=== PATIENT | female | born 1990 | race Caucasian/White ===

== ENCOUNTER 2020-10-31 23:35 | Emergency (ER) | payer MEDICARE ==
[2020-11-01] MEDS ORDERED: Sodium Chloride 0.9% 1000 ML 1,000 ML ONE (01:59)
[2020-11-01] MEDS ORDERED: TORAdol 30 mg Injection ONE (01:59)
[2020-11-01 03:07] LABS: Hematocrit 39.2 % (35-47); Hemoglobin 13.5 gm/dl (12.0-16.0); White Blood Count 7.3 K/mm3 (4.0-10.5)
[2020-11-01 03:08] LABS: ALBUMIN 4.5 g/dL (3.5-5.0); BLOOD UREA NITROGEN 16 mg/dL (7-17); CHLORIDE 104 mmol/L (98-107); Calcium 9.3 mg/dL (8.4-10.2); Carbon Dioxide 24 mmol/L (22-30); Creatinine 1 0.69 mg/dL (0.52-1.04); EST GLOMERULAR FILTRATION RATE > 60.0 ML/MIN; Glucose 100 mg/dL (74-106); Mean Cell Volume 87.1 fl (78-100); Mean Corpuscular Hgb Concent. 34.4 g/dl (32-36); Mean Platelet Volume 10.9 fl (7.5-11.0); Platelet Count 257 K/mm3 (150-450); Potassium 3.1 mmol/L (3.5-5.1); Red Cell Distribution Width 13.1 % (11.5-14.0); SODIUM 139 mmol/L (137-145); Total Protein 7.3 g/dL (6.3-8.2)
[2020-11-01 03:09] LABS: ALKALINE PHOSPHATASE 63 U/L (38-126); SGOT/AST 26 U/L (14-36); SGPT/ALT 22 U/L (0-35)
[2020-11-01] MEDS ORDERED: Klor Con 10 MEQ PO ONE ×2 (05:35→05:39)
[2020-11-01] MEDS ORDERED: MORPHINE SULFATE 2 MG INJ ONE (05:37)
[2020-11-01 06:07] LABS: Appearance TURBID (CLEAR); Glucose NEGATIVE (NEGATIVE); Leukocyte Esterase NEGATIVE (NEGATIVE); Nitrite NEGATIVE (NEGATIVE); Protein,Urine Dip NEGATIVE (Negative); Specific Gravity 1.027 (1.005-1.025)
[2020-11-01 06:08] LABS: Bilirubin NEGATIVE (NEGATIVE); Blood MODERATE Ery/ul (0-5); Ketones TRACE (NEGATIVE); Mucus MODERATE /HPF (NEGATIVE); RBC 0-2 /HPF (0-2); Urobilinogen NORMAL mg/dL (0-1)
[2020-11-01 06:09] LABS: Bacteria MODERATE /HPF (NEGATIVE); Epithelial Cells RARE /HPF (FEW)
--- NOTE | 2020-11-01 22:58 | XRAY ---
Exam: CT of the abdomen and pelvis without IV contrast from 2:35 AM on 11/01/2020. CTDI: 7.27 mGy Comparison: None. Indication: 30-year-old female with abdominal pain; history of prior cholecystectomy and gastric sleeve surgery for weight loss; the patient has a past history of a right-sided kidney stone that was removed about 2 years ago; she now has right flank pain and hematuria. Technique: Non-IV contrast axial images were obtained through the abdomen and pelvis. Reconstructed coronal and sagittal images were created and reviewed. Findings: The lung bases appear essentially clear. There is an ornamental left nipple ring seen. The heart size is normal without pericardial effusion. The liver and spleen appear unremarkable without mass. Surgical clips consistent with prior cholecystectomy are seen within the right upper quadrant. No biliary duct distention is seen. Surgical suture material or clips are seen within the medial aspect of the left upper quadrant consistent with the patient's history of prior gastric sleeve surgery. The pancreas appears unremarkable. The adrenal glands are normal. Both kidneys are of normal size and shape. No renal calculi or hydronephrosis is seen. There is a small extrarenal pelvis on the right. It is difficult to follow the right ureter completely into the lower right hemipelvis. I note a 4 mm calcification within the lower right hemipelvis on axial images #102 and #103 which could possibly represent a distal right ureteral stone not causing significant obstruction at this time. Correlate clinically. The left ureter appears unremarkable. The abdominal aorta appears of normal diameter. No abnormal retroperitoneal lymphadenopathy is seen. I see no free intraperitoneal air. There is minimal protrusion of intra-abdominal fat into the subcutaneous fat at the level of the umbilicus on midline sagittal image #102. No bowel containing ventral hernia is seen. The bowel is nonobstructed. Some scattered colonic stool is seen. The appendix is noted within the right lower quadrant and appears unremarkable. The uterus is anteflexed and tilted to the left of midline. Both ovaries appear grossly unremarkable. Moderate stool is seen within the distal rectosigmoid colon. No enlarged pelvic lymph nodes or free intraperitoneal fluid is seen. The skeleton reveals no acute fracture or aggressive bone lesion. I believe there is some mild diffuse bulging of the L5-S1 disc. Impression: 1. On axial images #102 and #103, there is a 4 mm calcification within the inferior right hemipelvis which could possibly lie within the distal right ureter. It is difficult to follow the right ureter all the way down the right hemipelvis due to adjacent soft tissue structures. Correlate clinically. 2. A moderate amount of colonic fecal residue is seen. There is no evidence of bowel obstruction. 3. The appendix is normal. 4. No other acute intra-abdominal or pelvic process is seen.
== END 2020-11-01 05:50 | disposition home or self-care (01) ==
LOC: ED 23:35
DX: R10.9 Unspecified abdominal pain (principal); Z87.442 Personal history of urinary calculi; M54.5 Low back pain
CPT/HCPCS: 36415; 74176; 80053; 81001; 84703; 85027; 87086; 96360; 96372; 96374; 99283; J1885; J2270; A9270-GY

== ENCOUNTER 2020-11-01 20:16 | Emergency (ER) | payer MEDICARE ==
[2020-11-01] MEDS ORDERED: TORAdol 30 mg Injection IM ONE (20:41)
[2020-11-01] MEDS ORDERED: TORAdol 30 mg Injection ONE (20:48)
[2020-11-01] MEDS ORDERED: ZOFRAN ODT 4 MG PO ONE (20:56)
[2020-11-01] MEDS ORDERED: ZOFRAN ODT 4 MG ONE (20:57)
[2020-11-01 21:12] LABS: Amphetamine,Urine NEGATIVE (NEGATIVE); Barbiturate,Urine NEGATIVE (NEGATIVE); Benzodiazepine,Urine NEGATIVE (NEGATIVE); Cocaine,Urine NEGATIVE (NEGATIVE); Methadone,Urine NEGATIVE (NEGATIVE); Opiate,Urine POSITIVE (NEGATIVE); PCP,Urine NEGATIVE (NEGATIVE); THC,Urine NEGATIVE (NEGATIVE)
--- NOTE | 2020-11-01 21:14 | ERPHSYRPT ---
- History of Present Illness Historian: patient Exam Limitations: no limitations Patient Subjective Stated Complaint: pt states she was diagnosed with a kidney stone 1.5 weeks ago and has cont to have pain in her rt back and rt lower abd Triage Nursing Assessment: pt alert and oriented, answers questions approp. pt ambulatory with steady gait noted. respirations nonlabored. skin warm and dry. abd soft and nontender. pt states she has been having urine frequency and voi ding small amounts. reporst pain with urination. Physician History: 30 yo wf w 10 day h/o R flank pain/supra-pubic pain/hematuria/dysuria. Pt states that she was diagnosed w a R kidney stone at [place] in [facility] 10 days ago. She was seen here last night w Ct demonstrating constipation. She has had N/V and rates pain 11/25. Timing/Duration: other (10 days) Activities at Onset: rest Quality: burning Abdominal Pain Onset Location: suprapubic, flank Pain Radiation: no radiation Severity of Pain-Max: severe Severity of Pain-Current: severe Modifying Factors: Improves With: nothing Associated Symptoms: denies symptoms, back, nausea, vomiting Previous symptoms: same symptoms as today (w kidney stones) Allergies/Adverse Reactions: Sulfa (Sulfonamide Antibiotics) Allergy (Intermediate, Verified 11/01/20 20:40) Swelling of Tongue and Lips Hx Tetanus, Diphtheria Vaccination/Date Given: Yes Hx Influenza Vaccination/Date Given: Yes Hx Pneumococcal Vaccination/Date Given: No Immunizations Up to Date: Yes Travel Risk - International Travel Have you traveled outside of the country in past 3 weeks: No - Coronavirus Screening Are you exhibiting any of the following symptoms?: No Close contact with a COVID-19 positive Pt in past 14-21 Days: No - Vaccine Status Have you recieved a Covid-19 vaccination: Yes 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 - Vaccination Dates Date of 2cond Vaccination (if applicable): apr 2020 - Review of Systems Constitutional: No Symptoms Eyes: No Symptoms Ears, Nose, & Throat: No Symptoms Respiratory: No Symptoms Cardiac: No Symptoms Abdominal/Gastrointestinal: No Symptoms, Nausea, Vomiting Genitourinary Symptoms: No Symptoms, Dysuria, Frequency, Hematuria Musculoskeletal: No Symptoms Skin: No Symptoms Neurological: No Symptoms Psychological: No Symptoms Endocrine: No Symptoms Hematologic/Lymphatic: No Symptoms Immunological/Allergic: No Symptoms - Past Medical History Pertinent Past Medical History: Yes Other Medical History: pcos - Past Surgical History Past Surgical History: Yes Gastrointestinal: Cholecystectomy Other Surgical History: gastric sleeve - Social History Smoking Status: Never smoker Exposure to second hand smoke: No Drug Use: none Patient Lives Alone: No Significant Family History: no pertinent family hx - Female History Hx Last Menstrual Period: 10/22/20 end Hx Now: No - Nursing Vital Signs Nursing Vital Signs: Initial Vital Signs Temperature 98.2 F 11/01/20 20:23 Pulse Rate 91 H 11/01/20 20:23 Respiratory Rate 16 11/01/20 20:23 Blood Pressure 141/98 11/01/20 20:23 O2 Sat by Pulse Oximetry 100 11/01/20 20:23 Pain Scale Pain Intensity 4 Hypertensive - Physical Exam General Appearance: no apparent distress Eye Exam: PERRL/EOMI, eyes nml inspection Ears, Nose, Throat Exam: normal ENT inspection, TMs normal, pharynx normal Neck Exam: normal inspection, non-tender, supple, full range of motion, No meningismus, No mass, No Brudzinski, No Kernig's Respiratory Exam: normal breath sounds, lungs clear, airway intact, No respiratory distress Cardiovascular Exam: regular rate/rhythm, normal heart sounds, normal peripheral pulses, No murmur Gastrointestinal/Abdomen Exam: soft, tenderness (Mild supra-pubic ttp) Back Exam: normal inspection, normal range of motion, No CVA tenderness Extremity Exam: normal inspection, normal range of motion Neurologic Exam: alert, oriented x 3, cooperative, silk trimmer II-XII nml as tested, normal mood/affect, nml cerebellar function, nml station & gait, sensation nml Skin Exam: normal color, warm, dry Lymphatic Exam: No adenopathy SpO2 Interpretation: normal SpO2: 100 O2 Delivery: Room Air - Course Nursing assessment & vital signs reviewed: Yes - CT Exams Abdomen/Pelvis CT Interpretation: Discussed w/radiologist (4mm distal R ureteral stone which has moved to the UVJ when Dr. Beyer compared to earlier CT) Ordered Tests: Active Orders 24 hr Category Date Time Status ABDOMEN AND PELVIS W/0 CONTRAS [CT] Stat Exams 11/01/20 21:37 Taken CULTURE,URINE Stat Lab 11/01/20 21:07 Received HCG,QUALITATIVE URINE Stat Lab 11/01/20 20:40 Completed UA W/RFX UR CULTURE Stat Lab 11/01/20 21:07 Completed Urine Triage Profile Stat Lab 11/01/20 21:07 Completed Medication Summary Discontinued Medications Generic Name Dose Route Start Last Admin Trade Name Renee PRN Reason Stop Dose Admin Hydrocodone Bitart/Acetaminophen 2 tab 11/01/20 22:16 11/01/20 22:21 [place] 5/325 Mg PO 11/01/20 22:17 2 tab SENT HOME W/ PATIENT ONE Administration Hydrocodone Bitart/Acetaminophen Confirm 11/01/20 22:17 [place] 5/325 Mg Administered 11/01/20 22:18 Dose 2 tab .ROUTE .STK-MED ONE Ciprofloxacin 500 mg 11/02/20 22:17 11/01/20 22:20 Cipro 500 Mg PO 11/02/20 22:18 500 mg STAT ONE Administration Ciprofloxacin Confirm 11/01/20 22:17 Cipro 500 Mg Administered 11/01/20 22:18 Dose 500 mg .ROUTE .STK-MED ONE Hydromorphone HCl 1 mg 11/01/20 21:42 11/01/20 21:50 Hydromorphone 1 Mg/Ml Injection IM 11/01/20 21:43 1 mg STAT ONE Administration Hydromorphone HCl Confirm 11/01/20 21:48 Hydromorphone 1 Mg/Ml Injection Administered 11/01/20 21:49 Dose 1 mg .ROUTE .STK-MED ONE Ketorolac Tromethamine 60 mg 11/01/20 20:41 11/01/20 20:51 Toradol 30 Mg Injection IM 11/01/20 20:42 60 mg STAT ONE Administration Ketorolac Tromethamine Confirm 11/01/20 20:48 Toradol 30 Mg Injection Administered 11/01/20 20:49 Dose 60 mg .ROUTE .STK-MED ONE Ondansetron HCl 4 mg 11/01/20 20:56 11/01/20 20:58 Zofran Odt 4 Mg PO 11/01/20 20:57 4 mg STAT ONE Administration Ondansetron HCl Confirm 11/01/20 20:57 Zofran Odt 4 Mg Administered 11/01/20 20:58 Dose 4 mg .ROUTE .STK-MED ONE Lab/Rad Data: Laboratory Results 11/01/20 11/01/20 11/01/20 Range/Units 21:07 21:07 20:40 Urine Color YELLOW (YELLOW) Urine Appearance CLOUDY (CLEAR) Urine pH 5.0 (5-6) Ur Specific [place] 1.047 (1.005-1.025) Urine Protein 30 (Negative) Urine Ketones SMALL (NEGATIVE) Urine Blood LARGE (0-5) [place]/ul Urine Nitrite NEGATIVE (NEGATIVE) Urine Bilirubin NEGATIVE (NEGATIVE) Urine Urobilinogen NEGATIVE (0-1) mg/dL Ur Leukocyte Esterase NEGATIVE (NEGATIVE) Urine WBC (Auto) 3-5 (0-5) /HPF Urine RBC (Auto) 11-15 (0-2) /HPF U Epithel Cells (Auto) MODERATE (FEW) /HPF Urine Bacteria (Auto) RARE (NEGATIVE) /HPF Urine Mucus (Auto) SLIGHT (NEGATIVE) /HPF Urine Culture Reflexed YES (NO) Urine Glucose NEGATIVE (NEGATIVE) mg/dL Urine HCG, Qual NEGATIVE (Negative) Urine Opiates Level POSITIVE (NEGATIVE) Ur Methadone NEGATIVE (NEGATIVE) Urine Barbiturates NEGATIVE (NEGATIVE) Ur Phencyclidine (PCP) NEGATIVE (NEGATIVE) Urine Amphetamine NEGATIVE (NEGATIVE) U Benzodiazepine Level NEGATIVE (NEGATIVE) Urine Cocaine NEGATIVE (NEGATIVE) Urine Marijuana (THC) NEGATIVE (NEGATIVE) - Progress Progress: improved Progress Note: 11/01/20 22:12 Minimal improvement w 60mg IM Toradol Marked improvement w 1mg IM Dilaudid 11/01/20 22:27 Norco5/325 po x2 take home Cipro 500mg po x1 Counseled pt/family regarding: diagnosis, need for follow-up, rad results - Departure Departure Disposition: Home Clinical Impression: Ureterolithiasis Condition: Stable Critical Care Time: No Referrals: DOCTOR,NO FAMILY [Primary Care Provider] - Instructions: Kidney Stones (DC) Additional Instructions: Strain all urine Pain meds as needed Follow up with a urologist in [place] Continue w Cipro twice a day for 3 days Prescriptions: Hydrocodone/Acetaminophen [Hydrocodone-Acetamin 5-325 mg] 1 each PO Q6HPRN P RN #6 tablet MDD 4tabs PRN Reason: Pain Ciprofloxacin HCl [Cipro] 500 mg PO BID 3 Days #6 tablet Hydrocodone Bit/Acetaminophen [Hydrocodon-Acetaminophn 10-325] 1 each PO Q4- 6HPRN PRN #6 tablet MDD 4 tabs PRN Reason: Pain
[2020-11-01 21:16] LABS: Appearance CLOUDY (CLEAR); Bacteria RARE /HPF (NEGATIVE); Bilirubin NEGATIVE (NEGATIVE); Blood LARGE Ery/ul (0-5); Epithelial Cells MODERATE /HPF (FEW); Glucose NEGATIVE (NEGATIVE); Ketones SMALL (NEGATIVE); Leukocyte Esterase NEGATIVE (NEGATIVE); Mucus SLIGHT /HPF (NEGATIVE); Nitrite NEGATIVE (NEGATIVE); Protein,Urine Dip 30 (Negative); Specific Gravity 1.047 (1.005-1.025); Urobilinogen NEGATIVE mg/dL (0-1)
[2020-11-01] MEDS ORDERED: Hydromorphone 1 mg/ml Injection IM ONE (21:42)
[2020-11-01] MEDS ORDERED: Hydromorphone 1 mg/ml Injection ONE (21:48)
[2020-11-01 22:09] VITALS: BP 144/90; PULSE 93
[2020-11-01 22:16] VITALS: O2SAT 100
[2020-11-01] MEDS ORDERED: NORCO 5/325 MG PO ONE (22:16)
[2020-11-01] MEDS ORDERED: Cipro 500 MG ONE (22:17)
[2020-11-01] MEDS ORDERED: NORCO 5/325 MG ONE (22:17)
--- NOTE | 2020-11-02 10:45 | XRAY ---
Exam: CT of the abdomen and pelvis without IV contrast from 9:23 PM on 11/01/2020. CTDI: 8.39 mGy Comparison: CT of the abdomen and pelvis without IV contrast from 2:35 AM on 11/01/2020. Indication: 30-year-old female with right lower pelvic pain with blood in urine; history of right-sided renal/ureteral stone 2 years ago that was removed; also has history of prior cholecystectomy and gastric sleeve surgery. Technique: Non-IV contrast axial images were obtained through the abdomen and pelvis. Reconstructed coronal and sagittal images were created and reviewed. Findings: It now appears that the previously mentioned 4 mm calcification within the inferior right hemipelvis did lie within the distal right ureter, as it has now moved and is seen on axial image #101 at the right ureterovesical junction. Furthermore, there is new prominence of the right ureter which measures up to 8 mm in diameter. I also note new right renal swelling/edema with mild hydronephrosis. Therefore, this distal right ureteral stone is now causing some right-sided obstructive uropathy. The remainder of the findings appears similar with evidence of prior gastric sleeve surgery and cholecystectomy. The remainder of the liver, spleen, pancreas, adrenal glands, and left kidney appears unremarkable. I see no other renal or ureteral calculi. No urinary bladder stone is seen. The abdominal aorta appears unremarkable. No retroperitoneal lymphadenopathy or free intraperitoneal air is seen. No ventral abdominal wall hernia is seen. I again see minimal protrusion of intraperitoneal fat into the subcutaneous fat at the level of the umbilicus on midline sagittal image #98. The appendix appears unremarkable within the right lower quadrant. The bowel appears nonobstructed. Some scattered stool is seen throughout the colon. The uterus is anteflexed. The patient's ovaries appear unremarkable. No abnormally enlarged pelvic lymph nodes or free fluid within the pelvis is seen. The skeleton reveals no fracture or aggressive bone lesion. Incidentally, there appears to be a transitional vertebra at the lumbosacral junction inferior to L5. Impression: 1. I now see that the 4 mm calcification previously noted within the inferior right hemipelvis has moved to the level of the right ureterovesical junction and is causing new mild right-sided hydroureter, renal swelling, and hydronephrosis (i.e. obstructive uropathy) as compared to the previous CT from earlier today. 2. The remainder of the findings within the abdomen and pelvis appears unchanged.
[2020-11-02] MEDS ORDERED: Cipro 500 MG PO ONE (22:17)
== END 2020-11-01 22:43 | disposition home or self-care (01) ==
LOC: ED 20:16
DX: N20.2 Calculus of kidney with calculus of ureter (principal)
CPT/HCPCS: 74176; 80307; 81001; 84703; 87086; 96372; 99284; J1170; J1885; Q0162; A9270-GY